=== PATIENT | male | born 1955 | race Caucasian/White ===

== ENCOUNTER → 2016-12-29 | Outpatient (CLI) | payer OTHER ==
[~2016-12-29] MED LIST: ALTACE5 M1; ALTACE5 M1 PO; AMLODIPINE BESY10 MG; ASPIRIN325 PO; CATAFLAM50 MG; CRESTOR10 MG; EFFIENT10 MG PO; LEVOTHYROXIN0.112 M1; LOPRESSOR25; NICODERM CQ1 EAC1 TD; PAMELOR; TOPROL XL25 MG PO; VITAMIN D1000 UNI1 PO; ZETIA10 MG
== END ==
LOC: NUC 07:33
DX: I25.10 Atherosclerotic heart disease of native coronary artery without angina pectoris (principal)

== ENCOUNTER → 2017-12-28 | Outpatient (CLI) | payer OTHER ==
--- NOTE | ~2017-12-28 | 2DMMODE ---
[facility] [place] [place] [address] 2 D/M-MODE ECHOCARDIOGRAM Name: SHUN WU Room #: REG CL [facility]#: [id number] Admission: 12/28/17 Attend Phys: Cecilio Weller MD Discharge: Date of : 57 Date of Service: 12/28/17 1220 Report #: [id number] THIS REPORT FOR: //name// APPROVED REPORT Study performed: 12/28/2017 11:09:22 EXAM: Comprehensive 2D, Doppler, and color-flow Echocardiogram Patient Location: Out-Patient Status: routine BSA: 2.13 HR: 59 bpm BP: 164/94 mmHg Rhythm: NSR Other Information Study Quality: Adequate Indications CAD Hx: HTN, HLD, [place]/ Stents x3 2D Dimensions RVDd: 42.93 mm LVEF(%): 52.46 (>50%) IVSd: 15.81 (7-11mm) LVOT Diam: 22.66 (18-24mm) LVDd: 48.66 mm PWd: 14.69 (7-11mm) Ascending Ao: 39.10 (22-36mm) LVDs: 35.54 (25-40mm) Aortic Root: 35.44 mm IVC: 21.00 mm TAPSE: 2.30 (<1.7) Sorenson's LVEF: 52.46 % Volumes Left Atrial Volume (Systole) Single Plane 4CH: 61.46 mL Single Plane 2CH: 91.66 mL LA ESV Index: 40.00 mL/m2 Aortic Valve AoV Peak Michael.: 2.24 m/s AO Peak Gr.: 20.09 mmHg LVOT Max P.64 mmHg AO Mean Gr.: 10.20 mmHg AO V2 Mean: 1.51 m/s LVOT Max V: 1.08 m/s AO V2 VTI: 48.76 cm DANNA Vmax: 1.94 cm2 [facility] [place] [place] [address] 2 D/M-MODE ECHOCARDIOGRAM Name: SHUN WU KRUNAL Room #: REG CL [facility]#: [id number] Admission: 12/28/17 Attend Phys: Cecilio Weller MD Discharge: Date of : 57 Date of Service: 12/28/17 1220 Report #: [id number] Mitral Valve E/A Ratio: 0.9 MV Decel. Time: 321.54 ms MV E Max Michael.: 0.97 m/s MV A Michael.: 1.10 m/s MV PHT: 93.25 ms IVRT: 73.82 ms Pulmonary Valve PV Peak Michael.: 1.02 m/s PV Peak Gr.: 4.14 mmHg Pulmonary Vein P Vein S: 0.37 m/s P Vein A: 0.21 m/s P Vein D: 0.38 m/s P Vein A Dur.: 92.3 msec P Vein S/D Ratio: 0.97 Tricuspid Valve TR Peak Michael.: 2.59 m/s RAP Estimate: 5.00 mmHg TR Peak Gr.: 26.83 mmHg PA Pressure: 32.00 mmHg Left Ventricle The left ventricle is normal size. Moderate concentric left ventricular hypertrophy. The left ventricular systolic function is normal. LVEF is 55-60%. Grade I - abnormal relaxation pattern. Right Ventricle The right ventricle is normal size. The right ventricular systolic function is normal. Atria Left atrium is dilated. Right atrium is dilated. Aortic Valve Aortic valve is thickened and calcified. No aortic regurgitation is present. Mitral Valve Mitral valve leaflets are thickened.There is mitral annular calcification. Trace mitral regurgitation. No evidence of mitral valve stenosis. Tricuspid Valve The tricuspid valve is normal in structure. Trace tricuspid regurgitation. Estimated PAP 32 mmHg. [facility] [address] [place] [address] 2 D/M-MODE ECHOCARDIOGRAM Name: SHUN WU Room #: REG CL [facility]#: [id number] Admission: 12/28/17 Attend Phys: Cecilio Weller MD Discharge: Date of : 57 Date of Service: 12/28/17 1220 Report #: [id number] Pulmonic Valve The pulmonary valve is normal in structure. There is no pulmonic valvular regurgitation. Great Vessels The aortic root is normal in size. The ascending aorta is mildly dilated at 3.9. IVC is normal in size and collapses >50% with inspiration. Pericardium There is no pericardial effusion. <Conclusion> The left ventricle is normal size. Moderate concentric left ventricular hypertrophy. The left ventricular systolic function is normal. Grade I - abnormal relaxation pattern. Left atrium is dilated. Aortic valve is thickened and calcified. Mitral valve leaflets are thickened.There is mitral annular calcification. Trace mitral regurgitation. Trace tricuspid regurgitation. Estimated PAP 32 mmHg. <ELECTRONICALLY SIGNED> By: Cecilio Weller MD 12/28/170 19 19 Cecilio Weller MD /INF
== END ==
LOC: CV 09:00
DX: I25.10 Atherosclerotic heart disease of native coronary artery without angina pectoris (principal); I10 Essential (primary) hypertension; E78.5 Hyperlipidemia, unspecified

== ENCOUNTER → 2018-12-27 | Outpatient (CLI) | payer OTHER | LOC: NUC 07:10 | DX: I25.10 Atherosclerotic heart disease of native coronary artery without angina pectoris (principal); E78.5 Hyperlipidemia, unspecified; I10 Essential (primary) hypertension; I25.2 Old myocardial infarction; Z82.49 Family history of ischemic heart disease and other diseases of the circulatory system; Z79.899 Other long term (current) drug therapy ==

== ENCOUNTER → 2021-01-07 | Outpatient (CLI) | payer OTHER | LOC: SJCVCIMAG 07:33 | PROVIDERS: ATTEND Internal Medicine Cardiovascular Disease | DX: I49.3 Ventricular premature depolarization (principal); I21.19 ST elevation (STEMI) myocardial infarction involving other coronary artery of inferior wall; I25.10 Atherosclerotic heart disease of native coronary artery without angina pectoris; E78.5 Hyperlipidemia, unspecified; F17.200 Nicotine dependence, unspecified, uncomplicated; Z88.5 Allergy status to narcotic agent; Z79.82 Long term (current) use of aspirin; Z79.899 Other long term (current) drug therapy ==

== ENCOUNTER → 2021-07-08 | Outpatient (CLI) | payer OTHER | LOC: SJCVC 10:54 | PROVIDERS: ATTEND Internal Medicine Cardiovascular Disease | DX: R94.31 Abnormal electrocardiogram [ECG] [EKG] (principal); I11.9 Hypertensive heart disease without heart failure; I25.10 Atherosclerotic heart disease of native coronary artery without angina pectoris; E78.00 Pure hypercholesterolemia, unspecified; R60.9 Edema, unspecified; E78.5 Hyperlipidemia, unspecified; E03.9 Hypothyroidism, unspecified; N20.0 Calculus of kidney; I38 Endocarditis, valve unspecified; F17.210 Nicotine dependence, cigarettes, uncomplicated; Z79.82 Long term (current) use of aspirin; Z79.899 Other long term (current) drug therapy; Z72.89 Other problems related to lifestyle; Z82.49 Family history of ischemic heart disease and other diseases of the circulatory system ==